=== PATIENT | male | born 1945 | race Two or more races ===

== ENCOUNTER 2021-05-06 08:20 | Outpatient (CLI) | payer OTHER | END 2021-05-06 08:26 | disposition home or self-care (01) | LOC: RX STUDY 08:20 | PROVIDERS: ATTEND Internal Medicine Gastroenterology | DX: R13.12 Dysphagia, oropharyngeal phase (principal) ==

== ENCOUNTER 2024-01-25 08:43 | Outpatient (CLI) | payer OTHER | END 2024-01-25 08:53 | disposition home or self-care (01) | LOC: RX STUDY 08:43 | PROVIDERS: ATTEND Internal Medicine Gastroenterology | DX: R13.10 Dysphagia, unspecified (principal); K22.0 Achalasia of cardia ==